=== PATIENT | male | born 1935 | race Caucasian/White ===

== ENCOUNTER 2022-09-27 18:30 | Inpatient (IN) | payer MEDICARE, OTHER ==
[2022-09-27 19:20] LABS: #Eosinphils 0.1 10x3/uL (0.0-0.5); #Monocytes 0.4 10x3/uL (0.0-1.1); #Neutrophils 2.1 10x3/uL (1.5-8.4); %Basophils 0.6 % (0.0-2.0); %Eosinophils 1.5 % (0.0-6.0); %Lymphocytes 21.8 % (18.0-47.0); %Monocytes 11.4 % (0.0-10.0); %Neutrophils 63.5 % (40.0-75.0); Hemoglobin 11.2 g/dL (13.5-17.5); Mean Corpuscular HGB CONC 33.6 g/dL (32.0-36.0); Mean Corpuscular Hemoglobin 34.9 pg (27.0-33.0); Mean Corpuscular Volume 103.7 fl (81.2-95.1); Platelet Count 93 10x3/uL (150-450); RBC Distribution Width 19.2 % (11.5-14.5); Red Blood Cell (RBC) Count 3.21 10x6/uL (4.32-5.72); White Blood Cell (WBC) Count 3.3 10x3/uL (3.5-10.5)
[2022-09-27 19:27] LABS: ALT (SGPT) 25 U/L (8-55); AST (SGOT) 31 U/L (5-34); Albumin 3.6 g/dL (3.4-4.8); Alkaline Phosphatase 62 U/L (40-110); Anion Gap 17 mmol/L (10-20); BUN (Urea Nitrogen) 20 mg/dL (8.4-25.7); Bilirubin, Total 0.6 mg/dL (0.2-1.2); Calc. Creatinine Clearance 0 mL/min (70-130); Calcium 9.3 mg/dL (7.8-10.44); Carbon Dioxide 23 mmol/L (23-31); Chloride 102 mmol/L (98-107); Estimated GFR 62; Glucose 124 mg/dL (83-110); Lipase 20 U/L (8-78); Potassium 4.7 mmol/L (3.5-5.1); Protein, Total 6.6 g/dL (5.8-8.1); Sodium 137 mmol/L (136-145)
[2022-09-27 19:50] LABS: Anisocytosis SLIGHT = 6-15 cells (100X) (0-5/hpf); Macrocytosis SLIGHT = 6-15 cells (100X) (0-5/hpf); Platelet Morphology Comment Appears Decreased; Polychromasia SLIGHT = 2-3 cells (100X) (0-2/hpf)
[2022-09-27 22:14] LABS: Amphetamine Not Detected (NotDetected); Barbiturates Screen Not Detected (NotDetected); Benzodiazepine Screen Not Detected (NotDetected); Cocaine Metabolite Screen Not Detected (NotDetected); Methadone Not Detected (NotDetected); Methamphetamine Not Detected (NotDetected); Opiate Screen Not Detected (NotDetected); Oxycodone Screen Not Detected (NotDetected); Phencyclidine (PCP) Not Detected (NotDetected); THC/Cannabinoid Screen Not Detected (NotDetected); Tricyclic Screen Not Detected (NotDetected)
[2022-09-27] MEDS ORDERED: Labetalol HCl 100 MG/20 ML VIAL ONE (23:21)
[2022-09-28] MEDS ORDERED: Guaifenesin DM 100-10/5 ML UDCUP PO PRN (00:36)
[2022-09-28] MEDS ORDERED: Calcium Carbonate 500 MG ChewTAB PO PRN (00:36)
[2022-09-28] MEDS ORDERED: Acetaminophen 325 MG TAB PO PRN (00:36)
[2022-09-28] MEDS ORDERED: Ondansetron PF 4 MG/2 ML Vial IVP PRN (00:36)
[2022-09-28] MEDS ORDERED: Senokot S 8.6-50 MG TAB PO PRN (00:36)
[2022-09-28] MEDS ORDERED: Furosemide 40 MG/4 ML VIAL ONE (00:52)
[2022-09-28] MEDS ORDERED: Diltiazem 125 MG/25 ML SDV ONE ×2 (02:11→02:13)
[2022-09-28 03:33] LABS: SARS-CoV-2 NAA Rapid Test Not Detected (NotDetected)
[2022-09-28] MEDS ORDERED: Diltiazem 125 MG in Sodium Chloride 0.9% 100 ML IVPB SCH (04:00)
[2022-09-28] MEDS ORDERED: FLU VACC QS2022-23(65YR UP)/PF 240 MCG/0.7 ML SYRINGE IM ONE (05:00)
[2022-09-28 06:03] LABS: Anion Gap 18 mmol/L (10-20); BUN (Urea Nitrogen) 18 mg/dL (8.4-25.7); Calc. Creatinine Clearance 58 mL/min (70-130); Calcium 9.8 mg/dL (7.8-10.44); Carbon Dioxide 25 mmol/L (23-31); Chloride 100 mmol/L (98-107); Estimated GFR 73; Glucose 119 mg/dL (83-110); Potassium 4.6 mmol/L (3.5-5.1); Sodium 138 mmol/L (136-145)
[2022-09-28] MEDS: Furosemide 40 MG/4 ML VIAL SLOW IVP SCH ×2 (06:13→13:01)
[2022-09-28 06:21] LABS: #Monocytes 0.4 10x3/uL (0.0-1.1); #Neutrophils 1.7 10x3/uL (1.5-8.4); %Basophils 0.4 % (0.0-2.0); %Eosinophils 0.4 % (0.0-6.0); %Lymphocytes 22.7 % (18.0-47.0); %Monocytes 15.2 % (0.0-10.0); %Neutrophils 60.9 % (40.0-75.0); Hemoglobin 11.1 g/dL (13.5-17.5); Mean Corpuscular HGB CONC 32.9 g/dL (32.0-36.0); Mean Corpuscular Hemoglobin 34.3 pg (27.0-33.0); Mean Platelet Volume 10.2 fl (7.4-10.4); Platelet Count 82 10x3/uL (150-450); RBC Distribution Width 19.2 % (11.5-14.5); Red Blood Cell (RBC) Count 3.24 10x6/uL (4.32-5.72); White Blood Cell (WBC) Count 2.9 10x3/uL (3.5-10.5)
[2022-09-28 07:44] LABS: Platelet Morphology Comment Appears Decreased
[2022-09-28 07:47] LABS: Macrocytosis SLIGHT = 6-15 cells (100X) (0-5/hpf)
[2022-09-28] MEDS: Multivitamin W/ Minerals 1 TAB PO SCH (08:59)
[2022-09-28] MEDS: Dronedarone HCl 400 MG TAB PO SCH (16:51)
[2022-09-28] MEDS: Tamsulosin HCl 0.4 MG CAP PO SCH (20:31)
[2022-09-29 04:09] LABS: Hemoglobin 10.7 g/dL (13.5-17.5); Mean Corpuscular HGB CONC 34.2 g/dL (32.0-36.0); Mean Corpuscular Hemoglobin 34.6 pg (27.0-33.0); Mean Corpuscular Volume 101.3 fl (81.2-95.1); Platelet Count 89 10x3/uL (150-450); RBC Distribution Width 18.9 % (11.5-14.5); Red Blood Cell (RBC) Count 3.09 10x6/uL (4.32-5.72); White Blood Cell (WBC) Count 2.4 10x3/uL (3.5-10.5)
[2022-09-29 04:24] LABS: Anion Gap 16 mmol/L (10-20); BUN (Urea Nitrogen) 22 mg/dL (8.4-25.7); Calc. Creatinine Clearance 52 mL/min (70-130); Calcium 9.2 mg/dL (7.8-10.44); Carbon Dioxide 31 mmol/L (23-31); Chloride 94 mmol/L (98-107); Estimated GFR 63; Glucose 97 mg/dL (83-110); Magnesium 1.8 mg/dL (1.6-2.6); Potassium 3.2 mmol/L (3.5-5.1); Sodium 138 mmol/L (136-145)
[2022-09-29 05:21] LABS: MDiff Complete? YES
[2022-09-29 05:25] LABS: Eosinophils 4 % (0-10); Lymphocytes 41 % (21-51); Monocytes 11 % (0-10); Neutrophil 41 % (42-75); Reactive Lymphocytes 3 % (0-10)
[2022-09-29 05:26] LABS: Platelet Morphology Comment Appears Decreased
[2022-09-29] MEDS: Furosemide 40 MG/4 ML VIAL SLOW IVP SCH (05:26)
[2022-09-29 05:28] LABS: Macrocytosis SLIGHT = 6-15 cells (100X) (0-5/hpf)
[2022-09-29] MEDS: Dronedarone HCl 400 MG TAB PO SCH ×2 (07:36→17:03)
[2022-09-29] MEDS: Multivitamin W/ Minerals 1 TAB PO SCH (07:54)
[2022-09-29] MEDS ORDERED: Magnesium 2 GM/50 ML(in water) 2 GM in Premix Bag 1 BAG IVPB SCH (08:45)
[2022-09-29] MEDS ORDERED: Potassium Chloride 20 MEQ TAB PO SCH (08:45)
[2022-09-29] MEDS ORDERED: Magnesium 2 GM/50 ML BAG (IN WATER) ONE (09:19)
[2022-09-29] MEDS: Furosemide 20 MG TAB PO SCH ×2 (09:43→15:10)
[2022-09-29] MEDS ORDERED: PROPOFOL 20 ML ONE (11:46)
[2022-09-29] MEDS ORDERED: Lidocaine 1% PF 5 ML VIAL ONE (11:46)
[2022-09-29] MEDS ORDERED: ePHEDrine Sulfate 50 MG/10 ML VIAL ONE (11:46)
[2022-09-29] MEDS ORDERED: PHENYLEPHRINE-NS 100 MCG/ML 10 ML SYRINGE ONE (11:46)
[2022-09-29] MEDS: Spironolactone 25 MG TAB PO SCH (12:00)
[2022-09-29] MEDS: Tamsulosin HCl 0.4 MG CAP PO SCH (20:00)
[2022-09-30 04:16] LABS: ALT (SGPT) 24 U/L (8-55); AST (SGOT) 21 U/L (5-34); Albumin 3.2 g/dL (3.4-4.8); Alkaline Phosphatase 55 U/L (40-110); Anion Gap 14 mmol/L (10-20); BUN (Urea Nitrogen) 26 mg/dL (8.4-25.7); Bilirubin, Total 0.6 mg/dL (0.2-1.2); Calc. Creatinine Clearance 36 mL/min (70-130); Calcium 9.1 mg/dL (7.8-10.44); Carbon Dioxide 33 mmol/L (23-31); Chloride 94 mmol/L (98-107); Estimated GFR 42; Globulin 2.9 g/dL (2.4-3.5); Glucose 96 mg/dL (83-110); Potassium 3.9 mmol/L (3.5-5.1); Protein, Total 6.1 g/dL (5.8-8.1); Sodium 137 mmol/L (136-145)
[2022-09-30 04:22] LABS: #Eosinphils 0.1 10x3/uL (0.0-0.5); #Monocytes 0.4 10x3/uL (0.0-1.1); %Basophils 0.5 % (0.0-2.0); %Eosinophils 3.7 % (0.0-6.0); %Lymphocytes 33.6 % (18.0-47.0); %Monocytes 17.5 % (0.0-10.0); %Neutrophils 44.7 % (40.0-75.0); Mean Corpuscular HGB CONC 33.8 g/dL (32.0-36.0); Mean Corpuscular Hemoglobin 34.9 pg (27.0-33.0); Mean Corpuscular Volume 103.5 fl (81.2-95.1); Mean Platelet Volume 10.3 fl (7.4-10.4); Platelet Count 90 10x3/uL (150-450); RBC Distribution Width 19.6 % (11.5-14.5); Red Blood Cell (RBC) Count 2.89 10x6/uL (4.32-5.72); White Blood Cell (WBC) Count 2.3 10x3/uL (3.5-10.5)
[2022-09-30 05:52] LABS: Band 2 % (5-11); Eosinophils 1 % (0-10); Lymphocytes 37 % (21-51); Monocytes 12 % (0-10)
[2022-09-30 05:53] LABS: Neutrophil 48 % (42-75)
[2022-09-30 05:55] LABS: Macrocytosis SLIGHT = 6-15 cells (100X) (0-5/hpf); Platelet Morphology Comment Appears Decreased; Schistocytes SLIGHT = 2-5 cells (100X) (0-1/hpf)
[2022-09-30 06:16] VITALS: BMI 23.8
[2022-09-30] MEDS: Dronedarone HCl 400 MG TAB PO SCH (07:34)
[2022-09-30] MEDS: Multivitamin W/ Minerals 1 TAB PO SCH (08:33)
[2022-09-30] MEDS: Furosemide 20 MG TAB PO SCH (08:34)
[2022-09-30] MEDS ORDERED: Sodium Chloride 0.9% 1,000 ML IV SCH (09:30)
[2022-09-30 12:21] VITALS: TEMP 97.5
[2022-09-30] MEDS: Spironolactone 25 MG TAB PO SCH (12:25)
[2022-09-30 13:03] VITALS: BP 104/55
== END 2022-09-30 14:18 | disposition home or self-care (01) | DRG 308 ==
LOC: CSHERS 18:30 → CSHIMCU 09-28 02:56
PROVIDERS: ADMIT Student in an Organized Health Care Education/Training Program; ATTEND Student in an Organized Health Care Education/Training Program
PROC: 5A2204Z Restoration of Cardiac Rhythm, Single (ICD-10-PCS; principal; 2022-09-29)
DX: I48.0 Paroxysmal atrial fibrillation (principal); J96.01 Acute respiratory failure with hypoxia; D61.818 Other pancytopenia; J90 Pleural effusion, not elsewhere classified; I48.92 Unspecified atrial flutter; R91.1 Solitary pulmonary nodule; D46.9 Myelodysplastic syndrome, unspecified; N18.2 Chronic kidney disease, stage 2 (mild); N40.0 Benign prostatic hyperplasia without lower urinary tract symptoms; I12.9 Hypertensive chronic kidney disease with stage 1 through stage 4 chronic kidney disease, or unspecified chronic kidney disease; E03.9 Hypothyroidism, unspecified; E86.0 Dehydration; Z95.0 Presence of cardiac pacemaker; Z98.890 Other specified postprocedural states; Z20.822 Contact with and (suspected) exposure to COVID-19
CPT/HCPCS: 36415; 71045; 71275; 80048; 80053; 80306; 83690; 83735; 83880; 84145; 84443; 84484; 85025; 92960; 93005; 93010; 94760; 94762; 96365; 96375; 96376; J1650; J1940; J2704; J3475; J3490; J7050; U0002